=== PATIENT | female | born 1950 | race African-American/Black ===

== ENCOUNTER 2016-10-22 13:00 | Outpatient (RCR) | payer OTHER, MEDICARE ==
[2016-07-27 13:28] VITALS: BP 130/49; PULSE 58; TEMP 98.2
[2016-08-17 13:09] VITALS: BP 138/56; PULSE 64; TEMP 97.5
[2016-09-07 13:41] VITALS: BP 129/64; PULSE 74; TEMP 98.1
[2016-09-21 13:21] VITALS: BP 138/49; PULSE 64; TEMP 98.3
[2016-10-05 13:12] VITALS: BP 126/51; PULSE 86; TEMP 98
[~2016-10-22] VITALS: Ht 157.5 cm; Wt 77.2 kg
[~2016-10-22 13:00] MED LIST: ALBUTEROL1.25 MG/3 IH; AMOXICILLIN 50500 MG; AMOXICILLIN 8751 TAB PO; DESYREL 50MG50 MG; FLEXERIL 1010 MG/TAB PO; FLONASEALLERGY NS; IBU800 M1 PO; KLONOPIN WAFER0.5 MG PO; KLOR-CON SPRINK8 MEQ PO; LASIX 20MG TABL20 MG PO; NUCYNTA100 MG PO; PREDNISONE20 MG PO; PROAIR HFA0.09 MG/AC IH; RT ADVAIR 528 DISKUS IH; SINGULAIR 110 MG/TAB PO; TUDORZA IH; XYZAL5 MG PO; ZYRTEC 10MG10 MG PO
[2016-10-22 13:30] VITALS: BP 127/60; PULSE 63; TEMP 98.2
== END 2016-10-25 | disposition home or self-care (01) ==
LOC: EUO
DX: J45.50 Severe persistent asthma, uncomplicated (principal)
CPT/HCPCS: J2357

== ENCOUNTER 2016-11-02 13:24 | Outpatient (RCR) | payer OTHER, MEDICARE ==
[~2016-11-02] VITALS: Ht 157.5 cm; Wt 80.9 kg
[2016-11-02 13:24] VITALS: BP 133/54; PULSE 69; TEMP 98.7
[2016-11-07] MEDS ORDERED: ALBUTEROL0.83 MG/ML IH (09:06)
[2016-11-07] MEDS ORDERED: RT ADVAIR 528 DISKUS IH (09:06)
[2016-11-07] MEDS ORDERED: VALIUM 5MG T5 MG/TAB PO (09:16)
== END 2017-01-31 | disposition home or self-care (01) ==
LOC: EUO
DX: J45.50 Severe persistent asthma, uncomplicated (principal); Z79.899 Other long term (current) drug therapy
CPT/HCPCS: J2357

== ENCOUNTER 2016-11-07 07:46 | Day surgery (SDC) | payer OTHER, MEDICARE ==
[2016-11-07] VITALS (8 sets, daily range): BP systolic 109–171; BP diastolic 47–80; PULSE 65–91; TEMP 97.1–97.6
[~2016-11-07] VITALS: Ht 157.5 cm; Wt 82.6 kg
[2016-11-07] MEDS ORDERED: ALBUTEROL0.83 MG/ML IH (09:06)
[2016-11-07] MEDS ORDERED: RT ADVAIR 528 DISKUS IH (09:06)
[2016-11-07] MEDS ORDERED: VALIUM 5MG T5 MG/TAB PO (09:16)
[2016-11-07 16:36] LABS: BRONCH WASH POLY - PMN 20 % (0-25)
[2016-11-07 16:39] LABS: BRONCH WASH FLUID MONONUCLEAR 80 % (0-75)
== END 2016-11-07 12:11 | disposition home or self-care (01) ==
LOC: SDCO 07:46
PROVIDERS: Internal Medicine Pulmonary Disease
DX: R06.02 Shortness of breath (principal); R05 Cough; J40 Bronchitis, not specified as acute or chronic
CPT/HCPCS: J2704; J7030

== ENCOUNTER 2017-05-03 10:00 | Outpatient (RCR) | payer OTHER, MEDICARE ==
[2017-02-05 09:15] VITALS: BP 124/61; PULSE 98; TEMP 97.5
[2017-02-20 14:59] VITALS: BP 168/77; PULSE 75; TEMP 98.4
[2017-03-06 14:19] VITALS: BP 122/56; PULSE 70; TEMP 98.1
[2017-03-20 13:00] VITALS: BP 181/79; PULSE 63; TEMP 97.7
[2017-04-04 14:18] VITALS: BP 112/50; PULSE 99; TEMP 98.1
[2017-04-18 15:27] VITALS: BP 126/44; PULSE 60; TEMP 97.7
[~2017-05-03] VITALS: Ht 157.5 cm; Wt 82.2 kg
[~2017-05-03 10:00] MED LIST changes: +ALBUTEROL0.83 MG/ML IH; +VALIUM 5MG T5 MG/TAB PO
[2017-05-03 11:40] VITALS: BP 149/52; PULSE 68; TEMP 97.8
[2017-05-17] MEDS ORDERED: ZOCOR 20MG20 MG PO (13:51)
[2017-05-17] MEDS ORDERED: PRINIVIL5 MG PO (13:51)
[2017-05-17] MEDS ORDERED: GLUCOPHAGE500 MG/TAB PO (13:51)
[2017-05-17] MEDS ORDERED: ASPIRIN 81M81 MG/TA2 PO (13:52)
== END 2017-05-06 | disposition home or self-care (01) ==
LOC: EUO
DX: J45.50 Severe persistent asthma, uncomplicated (principal); Z79.899 Other long term (current) drug therapy
CPT/HCPCS: J2357

== ENCOUNTER 2017-08-09 13:00 | Outpatient (RCR) | payer OTHER, MEDICARE ==
[2017-05-17 13:52] VITALS: BP 106/50; PULSE 62; TEMP 97.8
[2017-05-31 13:51] VITALS: BP 126/54; PULSE 62; TEMP 97.9
[2017-06-14 13:46] VITALS: BP 114/52; PULSE 58; TEMP 98.1
[2017-06-28 12:38] VITALS: BP 129/46; PULSE 64; TEMP 97.4
[2017-07-24 14:03] VITALS: BP 110/55; PULSE 72; TEMP 97.6
[~2017-08-09] VITALS: Ht 157.5 cm; Wt 80.0 kg
[~2017-08-09 13:00] MED LIST changes: +ASPIRIN 81M81 MG/TA2 PO; +GLUCOPHAGE500 MG/TAB PO; +PRINIVIL5 MG PO; +ZOCOR 20MG20 MG PO
[2017-08-09 14:04] VITALS: BP 138/64; PULSE 65; TEMP 98.4
== END 2017-08-15 ==
LOC: EUO
DX: J45.50 Severe persistent asthma, uncomplicated (principal)
CPT/HCPCS: J2357

== ENCOUNTER 2017-08-23 13:40 | Outpatient (RCR) | payer OTHER, MEDICARE ==
[2017-08-23 14:47] VITALS: BP 117/55; PULSE 69; TEMP 97.9
== END 2017-08-23 14:58 | disposition home or self-care (01) ==
LOC: EUO 13:40
DX: J45.50 Severe persistent asthma, uncomplicated (principal)
CPT/HCPCS: J2357

== ENCOUNTER 2017-09-27 09:00 | Outpatient (RCR) | payer MEDICARE, OTHER ==
[2017-09-10 11:44] VITALS: BP 130/50; PULSE 68; TEMP 97.7
[~2017-09-27] VITALS: Ht 157.5 cm; Wt 86.5 kg
[~2017-09-27 09:00] MED LIST changes: +NEURONTIN100 MG/CAP PO
[2017-09-27 10:07] VITALS: BP 139/52; PULSE 78; TEMP 97.7
[2017-10-25 09:00] VITALS: BP 143/64; PULSE 95; TEMP 98.6
== END 2017-10-25 10:15 | disposition home or self-care (01) ==
LOC: EUO 09:00
DX: J45.50 Severe persistent asthma, uncomplicated (principal)
CPT/HCPCS: J2357

== ENCOUNTER 2017-11-22 13:00 | Outpatient (RCR) | payer MEDICARE, OTHER ==
[2017-11-08 13:30] VITALS: BP 134/57; PULSE 77; TEMP 98
[2017-11-22 13:23] VITALS: BP 121/43; PULSE 60; TEMP 97.9
== END 2017-12-06 14:43 | disposition home or self-care (01) ==
LOC: EUO 13:00
DX: J45.50 Severe persistent asthma, uncomplicated (principal)
CPT/HCPCS: J2357

== ENCOUNTER → 2018-04-03 | Outpatient (RCR) | payer MEDICARE, OTHER ==
[2018-01-03 11:05] VITALS: BP 129/42; PULSE 61; TEMP 97.6
[2018-01-29 16:22] VITALS: BP 151/72; PULSE 70; TEMP 98.3
[2018-03-20 11:08] VITALS: BP 146/65; PULSE 74; TEMP 97.6
[~2018-04-03] VITALS: Ht 157.5 cm; Wt 83.4 kg
[2018-04-03 14:38] VITALS: BP 143/72; PULSE 58; TEMP 97.9
== END | disposition home or self-care (01) ==
LOC: EUO
DX: J45.50 Severe persistent asthma, uncomplicated (principal)
CPT/HCPCS: J2357

== ENCOUNTER 2018-07-04 13:00 | Outpatient (RCR) | payer MEDICARE, OTHER ==
[2018-04-17 14:33] VITALS: BP 146/55; PULSE 63; TEMP 97.8
[2018-05-16 13:48] VITALS: BP 127/60; PULSE 76; TEMP 97.8
[2018-05-30 14:04] VITALS: BP 152/63; PULSE 64; TEMP 97.6
[2018-06-13 13:41] VITALS: BP 130/46; PULSE 66; TEMP 97.4
[~2018-07-04] VITALS: Ht 157.5 cm; Wt 81.9 kg
[2018-07-04 08:59] VITALS: BP 131/57; PULSE 65; TEMP 97.9
== END 2018-07-16 | disposition home or self-care (01) ==
LOC: EUO
DX: J45.40 Moderate persistent asthma, uncomplicated (principal)
CPT/HCPCS: J2357

== ENCOUNTER 2018-08-15 13:00 | Outpatient (RCR) | payer MEDICARE, OTHER ==
[2018-07-18 15:40] VITALS: BP 132/62; PULSE 6; TEMP 97.5
[2018-08-01 11:25] VITALS: BP 151/52; PULSE 65; TEMP 98
[~2018-08-15] VITALS: Ht 157.5 cm; Wt 82.0 kg
[2018-08-15 14:52] VITALS: BP 153/59; PULSE 65; TEMP 97.6
== END 2018-08-25 22:00 | disposition home or self-care (01) ==
LOC: EUO 13:00
DX: J45.40 Moderate persistent asthma, uncomplicated (principal)
CPT/HCPCS: J2357

== ENCOUNTER 2018-11-14 07:00 | Outpatient (RCR) | payer MEDICARE, OTHER ==
[2018-08-29 11:54] VITALS: BP 118/47; PULSE 65; TEMP 97.8
[2018-09-12 14:19] VITALS: BP 122/48; PULSE 63; TEMP 97.5
[2018-09-30 07:51] VITALS: BP 137/55; PULSE 65; TEMP 97.4
[2018-10-17 08:04] VITALS: BP 126/60; PULSE 60; TEMP 97.2
[2018-10-31 07:30] VITALS: BP 132/44; PULSE 65; TEMP 97.2
[~2018-11-14] VITALS: Ht 157.5 cm; Wt 84.6 kg
[2018-11-14 07:27] VITALS: BP 125/51; PULSE 74; TEMP 97.3
== END 2018-11-27 | disposition home or self-care (01) ==
LOC: EUO
DX: J45.40 Moderate persistent asthma, uncomplicated (principal)
CPT/HCPCS: J2357

== ENCOUNTER 2019-02-25 07:00 | Outpatient (RCR) | payer MEDICARE, OTHER ==
[2018-11-28 08:10] VITALS: BP 126/42; PULSE 69; TEMP 97.7
[2018-12-12 07:18] VITALS: BP 122/52; PULSE 58; TEMP 97.9
[2018-12-26 08:00] VITALS: BP 128/48; PULSE 58; TEMP 97.5
[2019-01-09 07:26] VITALS: BP 129/49; PULSE 65; TEMP 98.1
[2019-01-23 07:15] VITALS: BP 130/56; PULSE 62; TEMP 97.9
[2019-02-06 07:47] VITALS: BP 128/62; PULSE 64; TEMP 98.1
[~2019-02-25] VITALS: Ht 157.5 cm; Wt 83.0 kg
[2019-02-25 07:11] VITALS: BP 127/58; PULSE 63; TEMP 97.3
== END 2019-02-25 09:51 | disposition home or self-care (01) ==
LOC: EUO 07:00
DX: J45.40 Moderate persistent asthma, uncomplicated (principal); Z79.899 Other long term (current) drug therapy
CPT/HCPCS: J2357

== ENCOUNTER 2019-05-29 07:30 | Outpatient (RCR) | payer MEDICARE, OTHER ==
[2019-03-16 13:28] VITALS: BP 128/55; PULSE 64; TEMP 98.2
[2019-04-03 07:41] VITALS: BP 145/61; PULSE 56; TEMP 97.7
[2019-04-17 07:58] VITALS: BP 128/58; PULSE 57; TEMP 97.8
[2019-05-01 07:42] VITALS: BP 119/45; PULSE 58; TEMP 98.2
[2019-05-15 08:09] VITALS: BP 142/64; PULSE 56; TEMP 98.4
[~2019-05-29] VITALS: Ht 157.5 cm; Wt 82.0 kg
[~2019-05-29 07:30] MED LIST changes: +Cholesterol med; -NEURONTIN100 MG/CAP PO; +NEURONTIN600 MG/TAB PO; -ZOCOR 20MG20 MG PO
[2019-05-29 08:00] VITALS: BP 143/68; PULSE 55; TEMP 98.4
[2019-05-29] MEDS ORDERED: PULMICORT0.25 MG/2 IH (08:21)
[2019-05-29] MEDS ORDERED: PERFOROMIS20 MCG/2 M IH (08:22)
[2019-05-29] MEDS ORDERED: YUPELRI175 MCG/3 IH (08:23)
[2019-05-29] MEDS ORDERED: BENADRYL25 M2 PO (08:24)
[2019-05-29] MEDS ORDERED: ZANTAC 150MG T150 MG PO (08:26)
[2019-05-29] MEDS ORDERED: NORCO 325 MG-51 TAB PO (08:26)
[2019-05-29] MEDS ORDERED: LIPITOR20 MG PO (08:27)
[2019-05-29] MEDS ORDERED: DESYREL 50MG50 MG PO (08:27)
[2019-06-12] MEDS ORDERED: NUCYNTA100 MG PO (08:38)
== END 2019-06-11 | disposition home or self-care (01) ==
LOC: EUO
DX: J45.40 Moderate persistent asthma, uncomplicated (principal); Z79.899 Other long term (current) drug therapy
CPT/HCPCS: J2357

== ENCOUNTER 2019-08-21 07:30 | Outpatient (RCR) | payer MEDICARE, OTHER ==
[2019-06-26 07:30] VITALS: BP 126/47; PULSE 68; TEMP 98
[2019-07-10 08:56] VITALS: BP 127/47; PULSE 57; TEMP 97.8
[2019-07-24 08:09] VITALS: BP 124/63; PULSE 71; TEMP 98.1
[2019-08-07 08:21] VITALS: BP 139/74; PULSE 62; TEMP 97.9
[~2019-08-21] VITALS: Ht 157.5 cm; Wt 83.7 kg
[~2019-08-21 07:30] MED LIST changes: +BENADRYL25 M2 PO; +DESYREL 50MG50 MG PO; +LIPITOR20 MG PO; +NORCO 325 MG-51 TAB PO; +PERFOROMIS20 MCG/2 M IH; +PULMICORT0.25 MG/2 IH; +YUPELRI175 MCG/3 IH; +ZANTAC 150MG T150 MG PO
[2019-08-21 08:10] VITALS: BP 128/48; PULSE 63; TEMP 97.9
== END 2019-08-21 08:11 | disposition home or self-care (01) ==
LOC: EUO 07:30
DX: J45.40 Moderate persistent asthma, uncomplicated (principal); Z79.899 Other long term (current) drug therapy
CPT/HCPCS: J2357

== ENCOUNTER 2020-05-18 07:30 | Outpatient (RCR) | payer MEDICARE, OTHER ==
[2020-03-15 08:28] VITALS: BP 108/69; PULSE 62; TEMP 98.2
[2020-03-31 07:51] VITALS: BP 134/78; PULSE 76; TEMP 98.1
[2020-04-19 07:52] VITALS: BP 112/74; PULSE 65; TEMP 98.7
[2020-05-03 07:48] VITALS: BP 104/69; PULSE 60; TEMP 98.5
[~2020-05-18] VITALS: Ht 157.5 cm; Wt 82.3 kg
[2020-05-18 08:06] VITALS: BP 132/84; PULSE 64; TEMP 98.4
== END 2020-05-26 09:24 | disposition home or self-care (01) ==
LOC: EUO 07:30
DX: J45.40 Moderate persistent asthma, uncomplicated (principal); Z79.899 Other long term (current) drug therapy
CPT/HCPCS: J2357

== ENCOUNTER 2020-08-17 07:30 | Outpatient (RCR) | payer MEDICARE, OTHER ==
[2020-06-01 08:15] VITALS: BP 123/73; PULSE 60; TEMP 98.6
[2020-06-15 08:09] VITALS: BP 112/72; PULSE 75; TEMP 98.7
[2020-06-30 13:39] VITALS: BP 136/68; PULSE 66; TEMP 97.5
[2020-07-14 07:55] VITALS: BP 116/78; PULSE 61; TEMP 97.8
[2020-08-04 07:30] VITALS: BP 136/80; PULSE 66; TEMP 98
[~2020-08-17] VITALS: Ht 157.5 cm; Wt 80.8 kg
[2020-08-17 08:20] VITALS: BP 128/69; PULSE 61; TEMP 98.8
== END 2020-08-23 15:15 | disposition home or self-care (01) ==
LOC: EUO 07:30
DX: J45.40 Moderate persistent asthma, uncomplicated (principal); Z79.899 Other long term (current) drug therapy
CPT/HCPCS: J2357

== ENCOUNTER 2020-11-08 07:30 | Outpatient (RCR) | payer MEDICARE, OTHER ==
[2020-09-01 08:24] VITALS: BP 120/70; PULSE 58; TEMP 98.4
[2020-09-15 07:55] VITALS: BP 147/81; PULSE 62; TEMP 98.5
[2020-09-29 08:40] VITALS: BP 137/86; PULSE 62; TEMP 98.3
[2020-10-13 08:44] VITALS: BP 128/53; PULSE 69; TEMP 98.3
[~2020-11-08] VITALS: Ht 157.5 cm; Wt 82.1 kg
[~2020-11-08 07:30] MED LIST changes: +RT ADVAIR 228 DISKUS IH; +RT SPIRIVA18 MCG IH
[2020-11-08 07:49] VITALS: BP 118/73; PULSE 64; TEMP 98.1
== END 2020-11-08 08:58 | disposition home or self-care (01) ==
LOC: EUO 07:30
DX: J45.40 Moderate persistent asthma, uncomplicated (principal); Z79.899 Other long term (current) drug therapy
CPT/HCPCS: J2357

== ENCOUNTER 2020-11-23 07:36 | Outpatient (CLI) | payer MEDICARE, OTHER ==
[~2020-11-23] VITALS: Ht 157.5 cm; Wt 81.9 kg
[2020-11-23 08:17] VITALS: BP 135/83; PULSE 58; TEMP 98.1
== END 2020-11-23 08:33 | disposition home or self-care (01) ==
LOC: EUO 07:36
DX: J45.40 Moderate persistent asthma, uncomplicated (principal); Z79.899 Other long term (current) drug therapy
CPT/HCPCS: J2357

== ENCOUNTER 2020-12-07 07:57 | Outpatient (CLI) | payer MEDICARE, OTHER ==
[~2020-12-07] VITALS: Ht 157.5 cm; Wt 81.6 kg
[2020-12-07 08:35] VITALS: BP 153/84; PULSE 62; TEMP 98.2
== END 2020-12-07 08:41 | disposition home or self-care (01) ==
LOC: EUO 07:57
DX: J45.40 Moderate persistent asthma, uncomplicated (principal); Z79.899 Other long term (current) drug therapy
CPT/HCPCS: J2357

== ENCOUNTER 2020-12-21 07:44 | Outpatient (CLI) | payer MEDICARE, OTHER ==
[~2020-12-21] VITALS: Ht 157.5 cm; Wt 80.0 kg
[2020-12-21 10:26] VITALS: BP 129/72; PULSE 57; TEMP 97.7
== END 2020-12-28 14:24 | disposition home or self-care (01) ==
LOC: EUO 07:44
DX: J45.40 Moderate persistent asthma, uncomplicated (principal); Z79.899 Other long term (current) drug therapy
CPT/HCPCS: J2357

== ENCOUNTER 2021-01-04 07:31 | Outpatient (CLI) | payer MEDICARE, OTHER ==
[~2021-01-04] VITALS: Ht 157.5 cm; Wt 80.8 kg
[2021-01-04 08:31] VITALS: BP 121/75; PULSE 57; TEMP 98.1
== END 2021-01-04 08:49 | disposition home or self-care (01) ==
LOC: EUO 07:31
DX: J45.40 Moderate persistent asthma, uncomplicated (principal); Z79.899 Other long term (current) drug therapy
CPT/HCPCS: J2357

== ENCOUNTER 2021-01-24 13:01 | Outpatient (CLI) | payer MEDICARE, OTHER ==
[~2021-01-24] VITALS: Ht 157.5 cm; Wt 80.1 kg
[2021-01-24 13:35] VITALS: BP 122/53; PULSE 56; TEMP 97.7
== END 2021-01-24 13:36 | disposition home or self-care (01) ==
LOC: EUO 13:01
DX: J45.40 Moderate persistent asthma, uncomplicated (principal); Z79.899 Other long term (current) drug therapy
CPT/HCPCS: J2357

== ENCOUNTER 2021-02-08 07:43 | Outpatient (CLI) | payer MEDICARE, OTHER ==
[~2021-02-08] VITALS: Ht 157.5 cm; Wt 79.5 kg
[2021-02-08 07:50] VITALS: BP 127/76; PULSE 61; TEMP 97.7
== END 2021-02-08 08:17 | disposition home or self-care (01) ==
LOC: EUO 07:43
DX: J45.40 Moderate persistent asthma, uncomplicated (principal); Z79.899 Other long term (current) drug therapy
CPT/HCPCS: J2357

== ENCOUNTER 2021-02-27 07:21 | Outpatient (CLI) | payer MEDICARE, OTHER ==
[~2021-02-27] VITALS: Ht 157.5 cm; Wt 82.1 kg
[2021-02-27 07:45] VITALS: BP 141/55; PULSE 60; TEMP 98.4
== END 2021-02-27 10:47 | disposition home or self-care (01) ==
LOC: EUO 07:21
DX: J45.40 Moderate persistent asthma, uncomplicated (principal); Z79.899 Other long term (current) drug therapy
CPT/HCPCS: J2357

== ENCOUNTER 2021-04-04 07:29 | Outpatient (CLI) | payer MEDICARE, OTHER ==
[~2021-04-04] VITALS: Ht 157.5 cm; Wt 83.1 kg
[2021-04-04 07:59] VITALS: BP 118/70; PULSE 79; TEMP 98.7
== END 2021-04-04 08:02 | disposition home or self-care (01) ==
LOC: EUO 07:29
DX: J45.40 Moderate persistent asthma, uncomplicated (principal); Z79.899 Other long term (current) drug therapy
CPT/HCPCS: J2357

== ENCOUNTER 2021-04-07 10:36 | Day surgery (SDC) | payer MEDICARE, OTHER ==
[~2021-04-07] VITALS: Ht 157.5 cm; Wt 82.0 kg
[2021-04-07] VITALS (11 sets, daily range): BP systolic 100–159; BP diastolic 45–77; PULSE 50–67; TEMP 97.9
[2021-04-07] MEDS ORDERED: ALBUTEROL0.83 MG/ML IH (11:32)
[2021-04-07] MEDS ORDERED: SPIRIVA RE2.5 MCG/Ac IH (11:33)
[2021-04-07] MEDS ORDERED: ZYRTEC 10MG10 MG PO (11:34)
[2021-04-07 11:35] LABS: HEMATOCRIT 36.7 % (37.0-47.0); MEAN CELL VOLUME 86 fl (80.0-100.0); MEAN CORPUSCULAR HEMOGLOBIN 28 pg (27.0-31.0); MEAN CORPUSCULAR HGB CONC 33 g/dl (33.0-37.0); PLATELET COUNT 241 K/mm3 (130-400); RED BLOOD COUNT 4.26 M/mm3 (4.10-5.30); REDCELL DISTRIBUTION WIDTH-CV 15.5 % (11.5-14.5)
[2021-04-07] MEDS ORDERED: ROBAXIN 75750 MG/TAB PO (11:37)
[2021-04-07 11:38] LABS: CREATININE, serum 0.78 (0.52-1.25)
[2021-04-07] MEDS ORDERED: MOTRIN 800800 MG/TAB PO (11:38)
[2021-04-07] MEDS ORDERED: NUCYNTA50 MG PO (11:39)
[2021-04-07 11:45] LABS: INR 1.1 (0.8-3.0); PROTHROMBIN TIME 11.7 SECONDS (9.7-12.8)
[2021-04-07 11:48] LABS: PARTIAL THROMBOPLASTIN TIME 38.7 SECONDS (26.0-37.0)
--- NOTE | 2021-04-07 13:36 | NUR ---
Report from En. Williams
--- NOTE | 2021-04-07 14:19 | NUR ---
SEE MERGE DOCUMENTATION FOR MEDICATION ADMINISTRATION AND INTRA/POST PROCEDURE SEDATION ASSESSMENTS.
--- NOTE | 2021-04-07 17:43 | NUR ---
All air removed in 2-3 ml incriments.No bleeding observed at site.Discharge instructions given to pt.Pt verbalizes understanding.INT removed,catheter tip itnact.
--- NOTE | 2021-04-07 18:10 | NUR ---
pt discharged via w/c with instructions to car with
== END 2021-04-07 18:11 | disposition home or self-care (01) ==
LOC: COL.CAR 10:36
PROVIDERS: Internal Medicine Cardiovascular Disease
DX: I20.8 Other forms of angina pectoris (principal); I10 Essential (primary) hypertension; E78.5 Hyperlipidemia, unspecified; J45.909 Unspecified asthma, uncomplicated; G47.33 Obstructive sleep apnea (adult) (pediatric); Z20.822 Contact with and (suspected) exposure to COVID-19; Z79.899 Other long term (current) drug therapy
CPT/HCPCS: C1887; J1644; J2250; J3010; J7030; Q9967

== ENCOUNTER 2021-05-19 07:27 | Outpatient (CLI) | payer MEDICARE, OTHER ==
[~2021-05-19] VITALS: Ht 157.5 cm; Wt 80.5 kg
[~2021-05-19 07:27] MED LIST changes: +MOTRIN 800800 MG/TAB PO; +NUCYNTA50 MG PO; +ROBAXIN 75750 MG/TAB PO; +SPIRIVA RE2.5 MCG/Ac IH
[2021-05-19 08:04] VITALS: BP 109/71; PULSE 59; TEMP 98.5
== END 2021-05-19 08:10 | disposition home or self-care (01) ==
LOC: EUO 07:27
DX: J45.40 Moderate persistent asthma, uncomplicated (principal); Z79.899 Other long term (current) drug therapy
CPT/HCPCS: J2357

== ENCOUNTER 2021-06-01 07:45 | Outpatient (CLI) | payer MEDICARE, OTHER ==
[~2021-06-01] VITALS: Ht 157.5 cm; Wt 79.3 kg
[2021-06-01 08:10] VITALS: BP 146/79; PULSE 68; TEMP 98.2
== END 2021-06-01 08:30 | disposition home or self-care (01) ==
LOC: EUO 07:45
DX: J45.40 Moderate persistent asthma, uncomplicated (principal); Z79.899 Other long term (current) drug therapy
CPT/HCPCS: J2357

== ENCOUNTER 2021-06-15 07:35 | Outpatient (CLI) | payer MEDICARE, OTHER ==
[~2021-06-15] VITALS: Ht 157.5 cm; Wt 78.7 kg
[2021-06-15 07:54] VITALS: BP 137/56; PULSE 56; TEMP 97.7
[2021-06-15 08:04] VITALS: BP 137/56; PULSE 56; TEMP 97.6
== END 2021-06-15 10:32 ==
LOC: EUO 07:35
DX: J45.40 Moderate persistent asthma, uncomplicated (principal); Z79.899 Other long term (current) drug therapy
CPT/HCPCS: J2357

== ENCOUNTER 2021-06-29 07:41 | Outpatient (CLI) | payer MEDICARE, OTHER ==
[~2021-06-29] VITALS: Ht 157.5 cm; Wt 97.7 kg
[2021-06-29 08:05] VITALS: BP 144/67; PULSE 58; TEMP 98.6
== END 2021-06-29 09:31 | disposition home or self-care (01) ==
LOC: EUO 07:41
DX: J45.40 Moderate persistent asthma, uncomplicated (principal)
CPT/HCPCS: J2357

== ENCOUNTER 2021-07-18 07:49 | Outpatient (CLI) | payer MEDICARE, OTHER ==
[~2021-07-18] VITALS: Ht 157.5 cm; Wt 81.2 kg
[2021-07-18 08:00] VITALS: BP 133/71; PULSE 53; TEMP 98.5
== END 2021-07-18 09:24 ==
LOC: EUO 07:49
DX: J45.40 Moderate persistent asthma, uncomplicated (principal); Z79.899 Other long term (current) drug therapy
CPT/HCPCS: J2357

== ENCOUNTER 2021-08-03 07:35 | Outpatient (CLI) | payer MEDICARE, OTHER ==
[~2021-08-03] VITALS: Ht 157.5 cm; Wt 78.9 kg
[2021-08-03 08:22] VITALS: BP 146/65; PULSE 71; TEMP 98.7
== END 2021-08-03 08:28 ==
LOC: EUO 07:35
DX: J45.40 Moderate persistent asthma, uncomplicated (principal); Z79.899 Other long term (current) drug therapy
CPT/HCPCS: J2357

== ENCOUNTER 2021-08-17 07:42 | Outpatient (CLI) | payer MEDICARE, OTHER ==
[~2021-08-17] VITALS: Ht 157.5 cm; Wt 83.3 kg
[2021-08-17 08:18] VITALS: BP 118/73; PULSE 57; TEMP 98.2
== END 2021-08-17 08:19 | disposition home or self-care (01) ==
LOC: EUO 07:42
DX: J45.40 Moderate persistent asthma, uncomplicated (principal); Z79.899 Other long term (current) drug therapy
CPT/HCPCS: J2357

== ENCOUNTER 2021-09-07 07:59 | Outpatient (CLI) | payer MEDICARE, OTHER ==
[~2021-09-07] VITALS: Ht 157.5 cm; Wt 90.4 kg
[2021-09-07 08:26] VITALS: BP 126/72; PULSE 64; TEMP 98.7
== END 2021-09-07 08:39 ==
LOC: EUO 07:59
DX: J45.40 Moderate persistent asthma, uncomplicated (principal); Z79.899 Other long term (current) drug therapy
CPT/HCPCS: J2357

== ENCOUNTER 2021-09-22 07:36 | Outpatient (CLI) | payer MEDICARE, OTHER ==
[~2021-09-22] VITALS: Ht 157.5 cm; Wt 82.9 kg
[2021-09-22 08:42] VITALS: BP 134/83; PULSE 60; TEMP 98.2
[2021-09-22] MEDS ORDERED: PREDNISONE20 MG PO (08:44)
== END 2021-09-22 08:45 ==
LOC: EUO 07:36
DX: J45.40 Moderate persistent asthma, uncomplicated (principal); Z79.899 Other long term (current) drug therapy
CPT/HCPCS: J2357

== ENCOUNTER 2021-10-05 07:26 | Outpatient (CLI) | payer MEDICARE, OTHER ==
[~2021-10-05] VITALS: Ht 157.5 cm; Wt 84.2 kg
[2021-10-05 07:46] VITALS: BP 133/67; PULSE 70; TEMP 98.5
== END 2021-10-05 08:30 | disposition home or self-care (01) ==
LOC: EUO 07:26
DX: Z79.899 Other long term (current) drug therapy (principal)
CPT/HCPCS: J2357

== ENCOUNTER 2021-10-20 07:32 | Outpatient (CLI) | payer MEDICARE, OTHER ==
[~2021-10-20] VITALS: Ht 157.5 cm; Wt 83.7 kg
[2021-10-20 08:08] VITALS: BP 130/72; PULSE 73; TEMP 98.1
== END 2021-10-20 08:12 ==
LOC: EUO 07:32
DX: J45.50 Severe persistent asthma, uncomplicated (principal); Z79.899 Other long term (current) drug therapy
CPT/HCPCS: J2357

== ENCOUNTER 2021-11-06 07:35 | Outpatient (CLI) | payer MEDICARE, OTHER ==
[2021-11-06 07:56] VITALS: BP 142/80; PULSE 71; TEMP 98.1
== END 2021-11-06 08:17 ==
LOC: EUO 07:35
DX: J45.40 Moderate persistent asthma, uncomplicated (principal); Z79.899 Other long term (current) drug therapy
CPT/HCPCS: J2357

== ENCOUNTER 2021-11-20 07:47 | Outpatient (CLI) | payer MEDICARE, OTHER ==
[~2021-11-20] VITALS: Ht 157.5 cm; Wt 84.5 kg
[2021-11-20 08:10] VITALS: BP 138/76; PULSE 63; TEMP 97.8
== END 2021-11-20 08:43 | disposition home or self-care (01) ==
LOC: EUO 07:47
DX: J45.40 Moderate persistent asthma, uncomplicated (principal)
CPT/HCPCS: J2357

== ENCOUNTER 2021-12-04 07:24 | Outpatient (CLI) | payer MEDICARE, OTHER ==
[2021-12-04 07:37] VITALS: BP 144/82; PULSE 59; TEMP 97.9
== END 2021-12-04 07:57 | disposition home or self-care (01) ==
LOC: EUO 07:24
DX: J45.40 Moderate persistent asthma, uncomplicated (principal)
CPT/HCPCS: J2357

== ENCOUNTER 2021-12-18 07:28 | Outpatient (CLI) | payer MEDICARE, OTHER ==
[~2021-12-18] VITALS: Ht 157.5 cm; Wt 85.0 kg
[2021-12-18 07:46] VITALS: BP 146/72; PULSE 62; TEMP 98.1
[2021-12-18] MEDS ORDERED: NEURONTIN600 MG/TAB PO (07:53)
== END 2021-12-18 08:07 | disposition home or self-care (01) ==
LOC: EUO 07:28
DX: J45.40 Moderate persistent asthma, uncomplicated (principal); Z79.899 Other long term (current) drug therapy
CPT/HCPCS: J2357

== ENCOUNTER 2022-01-08 07:44 | Outpatient (CLI) | payer MEDICARE, OTHER ==
[~2022-01-08] VITALS: Ht 157.5 cm; Wt 81.8 kg
[2022-01-08 08:18] VITALS: BP 121/62; PULSE 75; TEMP 98.4
== END 2022-01-08 09:45 ==
LOC: EUO 07:44
DX: J45.40 Moderate persistent asthma, uncomplicated (principal)
CPT/HCPCS: J2357

== ENCOUNTER 2022-01-23 07:32 | Outpatient (CLI) | payer MEDICARE, OTHER ==
[~2022-01-23] VITALS: Ht 157.5 cm; Wt 84.0 kg
[2022-01-23 07:56] VITALS: BP 138/79; PULSE 69; TEMP 98.4
[2022-01-23] MEDS ORDERED: BUSPAR DIVIDOSE15 MG PO (08:06)
== END 2022-01-23 08:19 | disposition home or self-care (01) ==
LOC: EUO 07:32
DX: Z79.899 Other long term (current) drug therapy (principal)
CPT/HCPCS: J2357

== ENCOUNTER 2022-02-09 07:30 | Outpatient (CLI) | payer MEDICARE, OTHER ==
[~2022-02-09 07:30] MED LIST changes: +BUSPAR DIVIDOSE15 MG PO
[2022-02-09 07:48] VITALS: BP 135/81; PULSE 61; TEMP 98.4
--- NOTE | 2022-02-09 08:12 | NUR ---
Pt ambulates out from dept with steady gait. She tolerated injections without issue.
== END 2022-02-09 08:13 | disposition home or self-care (01) ==
LOC: EUO 07:30
DX: J45.40 Moderate persistent asthma, uncomplicated (principal)
CPT/HCPCS: J2357

== ENCOUNTER 2022-02-23 07:44 | Outpatient (CLI) | payer MEDICARE, OTHER ==
[~2022-02-23] VITALS: Ht 157.5 cm; Wt 82.8 kg
[2022-02-23 08:00] VITALS: BP 133/83; PULSE 70; TEMP 98.7
== END 2022-02-23 16:44 ==
LOC: EUO 07:44
DX: J45.40 Moderate persistent asthma, uncomplicated (principal)
CPT/HCPCS: J2357

== ENCOUNTER 2022-03-09 07:20 | Outpatient (CLI) | payer MEDICARE, OTHER ==
[~2022-03-09] VITALS: Ht 157.5 cm; Wt 82.1 kg
[2022-03-09 07:41] VITALS: BP 124/79; PULSE 67; TEMP 97.8
== END 2022-03-09 11:39 | disposition home or self-care (01) ==
LOC: EUO 07:20
DX: J45.40 Moderate persistent asthma, uncomplicated (principal); Z79.899 Other long term (current) drug therapy
CPT/HCPCS: J2357

== ENCOUNTER 2022-03-23 07:51 | Outpatient (CLI) | payer MEDICARE, OTHER ==
[~2022-03-23] VITALS: Ht 157.5 cm; Wt 83.0 kg
[2022-03-23 08:25] VITALS: BP 149/75; PULSE 64; TEMP 97.7
== END 2022-03-23 09:00 | disposition home or self-care (01) ==
LOC: EUO 07:51
DX: J45.40 Moderate persistent asthma, uncomplicated (principal)
CPT/HCPCS: J2357

== ENCOUNTER 2022-04-06 08:24 | Outpatient (CLI) | payer MEDICARE, OTHER ==
[~2022-04-06] VITALS: Ht 157.5 cm; Wt 81.2 kg
[2022-04-06] MEDS ORDERED: TRULICITY0.75 MG/0. SQ (08:46)
[2022-04-06 09:17] VITALS: BP 114/78; PULSE 87; TEMP 98
== END 2022-04-06 09:19 ==
LOC: EUO 08:24
DX: J45.40 Moderate persistent asthma, uncomplicated (principal)
CPT/HCPCS: J2357

== ENCOUNTER 2022-04-20 07:46 | Outpatient (CLI) | payer MEDICARE, OTHER ==
[~2022-04-20] VITALS: Ht 157.5 cm; Wt 80.0 kg
[~2022-04-20 07:46] MED LIST changes: +TRULICITY0.75 MG/0. SQ
[2022-04-20 08:09] VITALS: BP 133/78; PULSE 63; TEMP 98.3
== END 2022-04-20 08:20 | disposition home or self-care (01) ==
LOC: EUO 07:46
DX: J45.40 Moderate persistent asthma, uncomplicated (principal)
CPT/HCPCS: J2357

== ENCOUNTER 2022-05-04 07:34 | Outpatient (CLI) | payer MEDICARE, OTHER ==
[~2022-05-04] VITALS: Ht 157.5 cm; Wt 79.3 kg
[2022-05-04 08:26] VITALS: BP 148/59; PULSE 63; TEMP 98.1
== END 2022-05-04 08:48 ==
LOC: EUO 07:34
DX: J45.50 Severe persistent asthma, uncomplicated (principal)
CPT/HCPCS: J2357

== ENCOUNTER 2022-05-18 07:37 | Outpatient (CLI) | payer MEDICARE, OTHER ==
[~2022-05-18] VITALS: Ht 157.5 cm; Wt 79.3 kg
[2022-05-18 07:56] VITALS: BP 132/76; PULSE 59; TEMP 98.5
== END 2022-05-18 08:30 | disposition home or self-care (01) ==
LOC: EUO 07:37
DX: J45.40 Moderate persistent asthma, uncomplicated (principal)
CPT/HCPCS: J2357

== ENCOUNTER 2022-09-21 07:46 | Outpatient (CLI) | payer MEDICARE, OTHER ==
[~2022-09-21] VITALS: Ht 157.5 cm; Wt 79.5 kg
[~2022-09-21 07:46] MED LIST changes: +NEXIUM 40MG40 MG PO; +XOLAIR150 MG/1 M SQ
[2022-09-21 08:28] VITALS: BP 122/73; PULSE 56; TEMP 97.9
== END 2022-09-21 09:00 | disposition home or self-care (01) ==
LOC: EUO 07:46
DX: J45.40 Moderate persistent asthma, uncomplicated (principal)
CPT/HCPCS: J2357

== ENCOUNTER 2022-10-09 15:57 | Outpatient (CLI) | payer MEDICARE, OTHER ==
[~2022-10-09] VITALS: Ht 157.5 cm; Wt 81.3 kg
[2022-10-09 16:18] VITALS: BP 161/70; PULSE 60; TEMP 98
== END 2022-10-09 16:28 | disposition home or self-care (01) ==
LOC: EUO 15:57
DX: J45.40 Moderate persistent asthma, uncomplicated (principal)
CPT/HCPCS: J2357

== ENCOUNTER 2022-10-27 12:57 | Emergency (ER) | payer MEDICARE, OTHER ==
[~2022-10-27] VITALS: Ht 157.5 cm; Wt 80.0 kg
[2022-10-27 13:01] VITALS: TEMP 97.7
[2022-10-27 14:57] LABS: BASO % 0.2 % (0.0-2.0); EOS % 0.1 % (0.0-4.0); GRAN # 11.5 K/mm3 (1.4-6.5); GRAN % 77.3 % (42.2-75.2); HEMATOCRIT 40.1 % (37.0-47.0); HEMOGLOBIN 13.5 g/dl (12.5-16.0); LYMPH # 2.4 K/mm3 (1.2-3.4); LYMPH % 16.3 % (20.0-51.0); MEAN CELL VOLUME 84 fl (80.0-100.0); MEAN CORPUSCULAR HEMOGLOBIN 28 pg (27-31); MEAN CORPUSCULAR HGB CONC 34 g/dl (33.0-37.0); MEAN PLATELET VOLUME 10.3 fl (7.4-10.4); MONO # 0.9 K/mm3 (0.1-0.6); MONO % 5.7 % (1.7-9.3); PLATELET COUNT 288 K/mm3 (130-400); RED BLOOD COUNT 4.78 M/mm3 (4.10-5.30); REDCELL DISTRIBUTION WIDTH-CV 15.3 % (11.5-14.5)
[2022-10-27 15:14] LABS: ALBUMIN 4.2 gm/dL (3.4-4.8); BILIRUBIN,TOTAL 0.4 mg/dL (0.2-1.2); C-REACTIVE PROTEIN 0.95 mg/dL (0.00-0.50); CREATININE, serum 0.83 mg/dL (0.57-1.11); TOTAL PROTEIN 8.1 gm/dL (6.2-8.1)
[2022-10-27 16:21] LABS: COLLECTION METHOD CLEAN CATCH
[2022-10-27 16:37] LABS: MUCOUS Present (NOT PRESENT); PH 5.5 (5-8); SQUAMOUS EPITHELIAL >50 /hpf (0-10); URINE APPEARANCE Cloudy (CLEAR/HAZY); URINE BACTERIA Moderate /hpf (NONE SEEN); URINE BLOOD 2+ (NEGATIVE); URINE COLOR Yellow (YELLOW); URINE GLUCOSE Negative (NEGATIVE); URINE KETONE Negative (NEGATIVE); URINE NITRATE Negative (NEGATIVE); URINE PROTEIN(semi-quant) 1+ (NEGATIVE); URINE RBC 20-50 /hpf (0-2); URINE UROBILINOGEN 0.2 (NEGATIVE)
[2022-10-27] MEDS ORDERED: PERCOCET 325 MG1 TA2 PO (17:38)
[2022-10-27 17:57] VITALS: BP 175/72; PULSE 52
== END 2022-10-27 17:57 | disposition home or self-care (01) ==
LOC: COL.ER 12:57
PROVIDERS: Nurse Practitioner
DX: N83.202 Unspecified ovarian cyst, left side (principal); Z90.49 Acquired absence of other specified parts of digestive tract; Z88.5 Allergy status to narcotic agent
CPT/HCPCS: J2405; J3010; J7030; Q9967

== ENCOUNTER 2022-11-16 07:40 | Outpatient (CLI) | payer MEDICARE, OTHER ==
[~2022-11-16] VITALS: Ht 157.5 cm; Wt 78.5 kg
[~2022-11-16 07:40] MED LIST changes: +PERCOCET 325 MG1 TA2 PO
[2022-11-16 08:00] VITALS: BP 148/76; PULSE 62; TEMP 97.6
== END 2022-11-16 09:10 ==
LOC: EUO 07:40
DX: J45.40 Moderate persistent asthma, uncomplicated (principal)
CPT/HCPCS: J2357

== ENCOUNTER 2023-05-07 08:53 | Outpatient (CLI) | payer MEDICARE, OTHER ==
[~2023-05-07] VITALS: Ht 157.5 cm; Wt 83.1 kg
[~2023-05-07 08:53] MED LIST changes: +LINZESS145CAP PO
[2023-05-07 08:56] VITALS: BP 162/75; PULSE 57; TEMP 98.1
== END 2023-05-07 10:23 ==
LOC: EUO 08:53
DX: J45.40 Moderate persistent asthma, uncomplicated (principal)
CPT/HCPCS: J2357

== ENCOUNTER 2023-06-04 07:27 | Outpatient (CLI) | payer MEDICARE, OTHER ==
[~2023-06-04] VITALS: Ht 157.5 cm; Wt 81.6 kg
[~2023-06-04 07:27] MED LIST changes: +GLUCOPHAGE XR500 M1 PO; +LIPITOR 40MG TA40 MG PO
[2023-06-04 07:44] VITALS: BP 145/73; PULSE 59; TEMP 98.7
--- NOTE | 2023-06-04 08:00 | NUR ---
Pt tolerates xolair without issue. She exits dept with steady gait.
== END 2023-06-04 08:00 | disposition home or self-care (01) ==
LOC: EUO 07:27
DX: J45.40 Moderate persistent asthma, uncomplicated (principal)
CPT/HCPCS: J2357

== ENCOUNTER 2023-06-18 07:55 | Outpatient (CLI) | payer MEDICARE, OTHER ==
[~2023-06-18] VITALS: Ht 157.5 cm; Wt 81.1 kg
[2023-06-18 07:48] VITALS: BP 137/76; PULSE 59; TEMP 98
--- NOTE | 2023-06-18 08:14 | NUR ---
Pt tolerated xolair without issue. She exits dept with steady gait.
== END 2023-06-18 08:15 | disposition home or self-care (01) ==
LOC: EUO 07:55
DX: J45.40 Moderate persistent asthma, uncomplicated (principal); Z79.899 Other long term (current) drug therapy
CPT/HCPCS: J2357

== ENCOUNTER 2023-08-23 07:40 | Outpatient (CLI) | payer MEDICARE, OTHER ==
[~2023-08-23] VITALS: Ht 157.5 cm; Wt 81.4 kg
[2023-08-23 07:53] VITALS: BP 146/81; PULSE 64; TEMP 97.6
== END 2023-08-23 08:02 | disposition home or self-care (01) ==
LOC: EUO 07:40
DX: J45.40 Moderate persistent asthma, uncomplicated (principal)
CPT/HCPCS: J2357

== ENCOUNTER 2023-09-17 07:51 | Outpatient (CLI) | payer MEDICARE, OTHER ==
[~2023-09-17] VITALS: Ht 157.5 cm; Wt 84.2 kg
[2023-09-17 08:14] VITALS: BP 137/82; PULSE 54; TEMP 98.1
[2023-09-17] MEDS ORDERED: Omalizumab 150 MG/1 ML SYRINGE SQ SCH (08:30)
== END 2023-09-17 08:35 | disposition home or self-care (01) ==
LOC: EUO 07:51
DX: J45.40 Moderate persistent asthma, uncomplicated (principal)
CPT/HCPCS: J2357

== ENCOUNTER 2023-10-03 07:38 | Outpatient (CLI) | payer MEDICARE, OTHER ==
[~2023-10-03] VITALS: Ht 157.5 cm; Wt 82.2 kg
[2023-10-03 07:50] VITALS: BP 121/62; PULSE 62; TEMP 98.2
[2023-10-03] MEDS ORDERED: Omalizumab 150 MG/1 ML SYRINGE SQ ONE (08:00)
--- NOTE | 2023-10-03 08:10 | NUR ---
Pt tolerated prolia without issue. She exits dept with steady gait, free of complaints upon discharge.
== END 2023-10-03 08:10 | disposition home or self-care (01) ==
LOC: EUO 07:38
DX: J45.40 Moderate persistent asthma, uncomplicated (principal)
CPT/HCPCS: J2357

== ENCOUNTER 2023-10-17 07:42 | Outpatient (CLI) | payer MEDICARE, OTHER ==
[~2023-10-17] VITALS: Ht 157.5 cm; Wt 83.4 kg
[2023-10-17 08:00] VITALS: BP 151/80; PULSE 55; TEMP 97.6
[2023-10-17] MEDS ORDERED: Omalizumab 150 MG/1 ML SYRINGE SQ SCH (08:00)
== END 2023-10-17 09:23 ==
LOC: EUO 07:42
DX: J45.40 Moderate persistent asthma, uncomplicated (principal)
CPT/HCPCS: J2357

== ENCOUNTER 2024-02-18 07:30 | Outpatient (CLI) | payer MEDICARE, OTHER ==
[~2024-02-18] VITALS: Ht 157.5 cm; Wt 82.0 kg
[2024-02-18] MEDS ORDERED: Omalizumab 150 MG/1 ML SYRINGE SQ SCH (08:00)
[2024-02-18 08:16] VITALS: BP 161/71; PULSE 68; TEMP 98.6
== END 2024-02-18 08:28 ==
LOC: EUO 07:30
DX: J45.40 Moderate persistent asthma, uncomplicated (principal)
CPT/HCPCS: J2357

== ENCOUNTER 2024-04-03 07:30 | Outpatient (CLI) | payer MEDICARE, OTHER ==
[~2024-04-03] VITALS: Ht 157.5 cm; Wt 83.2 kg
[2024-04-03] MEDS ORDERED: PREDFORTE15ML OU (07:47)
[2024-04-03 07:48] VITALS: BP 172/82; PULSE 53; TEMP 98
--- NOTE | 2024-04-03 07:59 | NUR ---
Pt tolerated xolair without issue. She exits dept with steady gait. Free of complaints at discharge.
[2024-04-03] MEDS ORDERED: Omalizumab 150 MG/1 ML SYRINGE SQ ONE (08:00)
== END 2024-04-03 07:59 | disposition home or self-care (01) ==
LOC: EUO 07:30
DX: J45.40 Moderate persistent asthma, uncomplicated (principal)
CPT/HCPCS: J2357

== ENCOUNTER 2024-05-22 07:33 | Outpatient (CLI) | payer MEDICARE, OTHER ==
[~2024-05-22] VITALS: Ht 157.5 cm; Wt 80.0 kg
[~2024-05-22 07:33] MED LIST changes: +PREDFORTE15ML OU
[2024-05-22 07:55] VITALS: BP 115/54; PULSE 51; TEMP 98.2
[2024-05-22] MEDS ORDERED: Omalizumab 150 MG/1 ML SYRINGE SQ ONE (08:00)
== END 2024-05-22 09:11 ==
LOC: EUO 07:33
DX: J45.40 Moderate persistent asthma, uncomplicated (principal)
CPT/HCPCS: J2357

== ENCOUNTER 2024-06-05 07:21 | Outpatient (CLI) | payer MEDICARE, OTHER ==
[~2024-06-05] VITALS: Ht 157.5 cm; Wt 78.5 kg
[2024-06-05] MEDS ORDERED: Omalizumab 150 MG/1 ML SYRINGE SQ SCH (07:45)
[2024-06-05] MEDS ORDERED: Omalizumab 150 MG/1 ML SYRINGE SQ ONE (07:45)
[2024-06-05 07:53] VITALS: BP 130/57; PULSE 51; TEMP 98.4
--- NOTE | 2024-06-05 08:07 | NUR ---
Pt tolerated xolair without issue. She exits dept with steady gait. Free of complaints at discharge.
== END 2024-06-05 08:07 | disposition home or self-care (01) ==
LOC: EUO 07:21
DX: J45.40 Moderate persistent asthma, uncomplicated (principal)
CPT/HCPCS: J2357

== ENCOUNTER 2024-06-19 07:17 | Outpatient (CLI) | payer MEDICARE, OTHER ==
[~2024-06-19] VITALS: Ht 157.5 cm; Wt 78.8 kg
[2024-06-19 07:55] VITALS: BP 146/71; PULSE 61; TEMP 98.1
[2024-06-19] MEDS ORDERED: Omalizumab 150 MG/1 ML SYRINGE SQ SCH (08:00)
--- NOTE | 2024-06-19 08:10 | NUR ---
Pt tolerated xolair without issue. She exits dept with steady gait. Free of complaints at discharge.
== END 2024-06-19 08:11 | disposition home or self-care (01) ==
LOC: EUO 07:17
DX: J45.40 Moderate persistent asthma, uncomplicated (principal)
CPT/HCPCS: J2357